=== PATIENT | female | born 1960 | race American Indian/Alaskan Native ===

== ENCOUNTER 2020-09-02 08:38 | Outpatient (CLI) | payer OTHER ==
--- NOTE | 2020-09-02 12:05 | Mammography Report ---
DIGITAL SCREENING MAMMOGRAM WITH CAD, 09/02/2020 CLINICAL INFORMATION / INDICATION: Routine screening mammography. TECHNIQUE: Digital bilateral 2D mammography was obtained in the craniocaudal and mediolateral obliqu e projections. This examination was interpreted with the benefit of Computer-Aided Detection analysis . COMPARISON: 05/14/2019, 05/03/2017, 08/25/2016 FINDINGS: Breast Density: The breasts are almost entirely fatty. No dominant mass, suspicious calcifications, or architectural distortion in the right breast. Again n oted is a centrally placed biopsy clip. Just slightly lateral to the biopsy clip, there is a new smal l grouping of microcalcifications. These calcifications will need further evaluation with magnificati on views. No other significant interval change. IMPRESSION: New small grouping of microcalcifications in the left breast at 3:00. Recommend left magn ification views. Follow up recommendation: Left magnification views. BI-RADS Category 0: Incomplete. Needs additional imaging evaluation and/or prior mammograms for nubia rison. A "normal" or negative report should not discourage follow up or biopsy of a clinically significant f inding. A written summary of these findings will be mailed to the patient. The patient will be entered into a mammography reporting system which will generate a reminder letter for the patient's next appointmen t at the appropriate interval. The [employer] recommends yearly mammograms starting at age 40 and continuing as l shreya as a woman is in good health. Breast MRI is recommended for women with an approximate 20-25% or greater lifetime risk of breast cancer, including women with a strong family history of breast or ova eliu cancer or who have been treated for Hodgkin's disease. Signer Name: Anny Stanley MD Signed: 09/02/2020 12:01 PM Workstation Name: [id number]
== END 2020-09-02 08:39 | disposition home or self-care (01) ==
LOC: SPVWC 08:38
PROVIDERS: ATTEND Surgery
DX: Z12.31 Encounter for screening mammogram for malignant neoplasm of breast (principal)
CPT/HCPCS: 77067

== ENCOUNTER 2020-09-24 14:25 | Outpatient (CLI) | payer OTHER ==
--- NOTE | 2020-09-24 16:03 | Mammography Report ---
DIGITAL DIAGNOSTIC MAMMOGRAM WITH CAD CONVENTIONAL, 09/24/2020 CLINICAL INFORMATION / INDICATION: Patient presents as a callback from screening mammogram for furthe r evaluation of left breast calcifications. ABNORMAL MAMMOGRAM TECHNIQUE: Digital left mammographic imaging was performed. Magnification views were obtained. This examination was interpreted with the benefit of Computer-aided Detection analysis. COMPARISON: Prior mammogram 09/02/2020 FINDINGS: Breast Density: The breasts are almost entirely fatty. Redemonstration of a biopsy clip in the central left breast at site of prior benign stereotactic biop sy. As seen on recent screening mammogram, there are increasing coarse heterogeneous calcifications s een slightly lateral and inferior to the biopsy site, and a few scattered similar appearing calcifica tions throughout the superior left breast. The group adjacent to the biopsy clip measures up to appro ximately 1.2 cm, though in total the scattered clusters of calcifications in the left breast span up to approximately 9 cm in extent. IMPRESSION: 1. Scattered clusters of coarse heterogeneous calcifications in the left breast as described above. T hese are considered low suspicion for malignancy, especially given that a prior left stereotactic bio psy for calcifications was benign. However, because they are increasing from priors, repeat stereotac tic biopsy of the cluster adjacent to the biopsy clip is recommended. Follow up recommendation: Biopsy BI-RADS Category 4: Suspicious for Malignancy. A "normal" or negative report should not discourage follow up or biopsy of a clinically significant f inding. A written summary of these findings will be mailed to the patient. The patient will be entered into a mammography reporting system which will generate a reminder letter for the patient's next appointmen t at the appropriate interval. According to the [employer], yearly mammograms are recommended starting at age 40 and continuing as long as a woman is in good health. Breast MRI is recommended for women with an kiersten roximately 20-25% or greater lifetime risk of breast cancer, including women with a strong family his tory of breast or ovarian cancer and women who have been treated for Hodgkin's disease. Signer Name: Esther Gomez MD Signed: 09/24/2020 3:59 PM Workstation Name: [email or web address]
== END 2020-09-24 14:26 | disposition home or self-care (01) ==
LOC: SPVWC 14:25
PROVIDERS: ATTEND Surgery
DX: R92.1 Mammographic calcification found on diagnostic imaging of breast (principal)

== ENCOUNTER 2020-10-21 13:22 | Outpatient (CLI) | payer OTHER ==
--- NOTE | 2020-10-21 15:34 | Mammography Report ---
DIGITAL DIAGNOSTIC MAMMOGRAM WITH CAD CONVENTIONAL, 10/21/2020 CLINICAL INFORMATION / INDICATION: Postbiopsy mammogram following left breast stereotactic biopsy. TECHNIQUE: Digital left mammographic imaging was performed. This examination was interpreted with the benefit of Computer-aided Detection analysis. COMPARISON: Prior mammogram 09/02/2020 FINDINGS: Breast Density: There are scattered areas of fibroglandular density. Postbiopsy mammogram reveals a biopsy cavity and clip appropriately positioned at site of previously described calcifications in the central to slightly lateral left breast, middle to posterior depth. C alcifications have been partially removed and are present on specimen radiograph. IMPRESSION: 1. Appropriately positioned biopsy cavity and clip following left breast stereotactic biopsy. Calcifi cations have been partially removed and are present on specimen radiograph. Follow up recommendation: No recall. Post biopsy imaging. A "normal" or negative report should not discourage follow up or biopsy of a clinically significant f inding. A written summary of these findings will be mailed to the patient. The patient will be entered into a mammography reporting system which will generate a reminder letter for the patient's next appointmen t at the appropriate interval. According to the [employer], yearly mammograms are recommended starting at age 40 and continuing as long as a woman is in good health. Breast MRI is recommended for women with an kiersten roximately 20-25% or greater lifetime risk of breast cancer, including women with a strong family his tory of breast or ovarian cancer and women who have been treated for Hodgkin's disease. Signer Name: Esther Gomez MD Signed: 10/21/2020 3:29 PM Workstation Name: [id number]
--- NOTE | 2020-10-21 15:35 | Mammography Report ---
STEREOTACTIC GUIDED LEFT BREAST BIOPSY, 10/21/2020 CLINICAL INFORMATION / INDICATION: ABNORMAL MAMMO R92.8. Patient presents for left breast stereotacti c biopsy. COMPARISON: Prior mammogram 09/02/2020 PROCEDURE: Risks, benefits, and indications to the procedure were discussed with the patient in detail, includin g bleeding, infection, hematoma formation, and inadequate tissue sampling. The patient agreed to proc eed with both verbal and written consent. A timeout procedure was performed with 2 patient identifier s. The patient was placed in the prone position on the biopsy table. Targeted stereotactic images were o btained of the area of interest. The targeted area was identified and coordinates were determined. Th e breast was cleansed and prepped in the usual sterile fashion. Lidocaine 1% with and without epineph rine was used for local anesthesia. Under direct stereotatic guidance, an 8 gauge Mammotome biopsy de vice was advanced to the correct position and multiple vacuum-assisted core samples were obtained. Po stbiopsy images confirm satisfactory tissue sampling within the biopsy cavity. Multiple calcification s are present on specimen radiograph. A biopsy marker was then deployed at the biopsy site. The biops y device was removed. Hemostasis was achieved with manual pressure. A sterile pressure dressing was a pplied to the skin. Post-biopsy mammogram was obtained. The patient tolerated the procedure without difficulty. No complications were encountered. Postbiopsy instructions were discussed with the patient and given in writing. IMPRESSION: 1. Technically successful stereotactic guided left breast biopsy. Biopsy results are pending and will be reported in an addendum. Signer Name: Esther Gomez MD Signed: 10/21/2020 3:31 PM Workstation Name: [id number]
== END 2020-10-21 13:23 | disposition home or self-care (01) ==
LOC: SPVWC 13:22
PROVIDERS: ATTEND Surgery
DX: R92.1 Mammographic calcification found on diagnostic imaging of breast (principal); R92.8 Other abnormal and inconclusive findings on diagnostic imaging of breast; R92.0 Mammographic microcalcification found on diagnostic imaging of breast; N64.89 Other specified disorders of breast
CPT/HCPCS: 19081; 77065; 88305; A4648

== ENCOUNTER 2021-03-25 08:16 | Outpatient (CLI) | payer OTHER ==
--- NOTE | 2021-03-25 08:52 | Mammography Report ---
DIGITAL DIAGNOSTIC MAMMOGRAM WITH CAD, 03/25/2021 INDICATION: This is a 6 month follow-up evaluation of the left breast after stereotactic guided biops y of calcifications with benign results. The patient reports no new breast symptoms. TECHNIQUE: Digital left mammographic imaging was performed. This examination was interpreted with the benefit of Computer-aided Detection analysis. COMPARISON: Left diagnostic mammogram, 10/21/2020. Diagnostic mammogram, 09/24/2020. Screening mammogra m, 09/02/2020 and 05/14/2019 FINDINGS: Breast Density: There are scattered areas of fibroglandular density. There is no evidence of dominant mass, suspicious calcifications or architectural distortion in the l eft breast. Postbiopsy changes are noted within the central left breast and calcifications have been partially removed. No new or suspicious mammographic finding is identified. IMPRESSION: Follow up recommendation: Back to schedule. BI-RADS Category 2: Benign. A "normal" or negative report should not discourage follow up or biopsy of a clinically significant f inding. A written summary of these findings will be mailed to the patient. The patient will be entered into a mammography reporting system which will generate a reminder letter for the patient's next appointmen t at the appropriate interval. According to the [employer], yearly mammograms are recommended starting at age 40 and continuing as long as a woman is in good health. Breast MRI is recommended for women with an kiersten roximately 20-25% or greater lifetime risk of breast cancer, including women with a strong family his tory of breast or ovarian cancer and women who have been treated for Hodgkin's disease. Signer Name: Judi Brice MD Signed: 03/25/2021 8:47 AM Workstation Name: [email or web address]
== END 2021-03-25 08:17 | disposition home or self-care (01) ==
LOC: SPVWC 08:16
PROVIDERS: ATTEND Surgery
DX: D24.2 Benign neoplasm of left breast (principal)

== ENCOUNTER 2021-09-07 09:30 | Outpatient (CLI) | payer OTHER, MEDICARE ==
--- NOTE | 2021-09-07 10:14 | Mammography Report ---
DIGITAL SCREENING MAMMOGRAM WITH CAD, 09/07/2021 CLINICAL INFORMATION / INDICATION: Routine screening mammography. TECHNIQUE: Digital bilateral 2D mammography was obtained in the craniocaudal and mediolateral obliqu e projections. This examination was interpreted with the benefit of Computer-Aided Detection analysis . COMPARISON: 03/23/2021, 10/21/2020, 09/02/2020, 05/14/2019 FINDINGS: Breast Density: There are scattered areas of fibroglandular density. No dominant mass, suspicious calcifications, or architectural distortion in either breast. Stable postbiopsy changes are noted centrally along the middle depth of the left breast. Bilateral be nign-appearing calcifications are unchanged. IMPRESSION: No mammographic evidence of malignancy. Follow up recommendation: Routine yearly BI-RADS Category 2: BENIGN. A "normal" or negative report should not discourage follow up or biopsy of a clinically significant f inding. A written summary of these findings will be mailed to the patient. The patient will be entered into a mammography reporting system which will generate a reminder letter for the patient's next appointmen t at the appropriate interval. The [employer] recommends yearly mammograms starting at age 40 and continuing as l shreya as a woman is in good health. Breast MRI is recommended for women with an approximate 20-25% or greater lifetime risk of breast cancer, including women with a strong family history of breast or ova eliu cancer or who have been treated for Hodgkin's disease. Signer Name: Kwesi Jeffery MD Signed: 09/07/2021 10:10 AM Workstation Name: [id number]
== END 2021-09-07 09:31 | disposition home or self-care (01) ==
LOC: SPVWC 09:30
PROVIDERS: ATTEND Surgery
DX: Z12.31 Encounter for screening mammogram for malignant neoplasm of breast (principal); N64.89 Other specified disorders of breast
CPT/HCPCS: 77067